=== PATIENT | female | born 1945 | race Caucasian/White ===

== ENCOUNTER 2016-08-16 10:50 | Day surgery (SDC) | payer BC ==
[~2016-08-16] VITALS: Ht 170.2 cm; Wt 66.1 kg
[~2016-08-16 10:50] MED LIST: SEIZURE MEDICATION; SPIRIVA; VENTOLIN
[2016-08-16 11:15] VITALS: Ht 170.2 cm; Wt 66.1 kg
[2016-08-16] MEDS ORDERED: LEVE250T66 PO (11:28)
[2016-08-16] MEDS ORDERED: MOME13HF2 INHALATION (11:28)
[2016-08-16 11:45] VITALS: BP 135/70; PULSE 80; RESP 18
[2016-08-16] MEDS ORDERED: FENTAnyl 50 MCG/ML VIAL ONE (12:15)
[2016-08-16] MEDS ORDERED: MIDAZOLAM 1 MG/ML 2 ML INJ ONE (12:15)
[2016-08-16] MEDS ORDERED: NEOSTIGMINE 3 MG/3 ML SYRINGE ONE (12:15)
--- NOTE | 2016-08-16 13:25 | GILP ---
DATE OF PROCEDURE: NAME OF PROCEDURES: Esophagogastroduodenoscopy and biopsy. SURGEON: Tan Quintero MD PREOPERATIVE DIAGNOSIS: Dysphagia. POSTOPERATIVE DIAGNOSES: 1. Hiatal hernia. 2. Reflux esophagitis with erosions at the lower end. 3. Gastritis with erosions. 4. Gastric mucosal biopsies were taken for Helicobacter pylori test. INDICATION FOR THE PROCEDURE: Ms. Naomi Bryson is a 70-year-old female patient who was complainin g of dysphagia. The patient was scheduled for endoscopic examination for further evaluation. The procedure and possible complications were well explained to the patient. The patient understood and consented to the procedure. DESCRIPTION OF PROCEDURE: Under the influence of anesthesia, the gastroscope was carefully introduc ed into the esophagus and under direct vision, it was advanced to the stomach and through the pyloru s into the duodenal bulb and descending duodenum. FINDINGS: ESOPHAGUS: The patient had hiatal hernia with reflux esophagitis and erosions at the lower end. STOMACH: The patient had gastritis with erosions. Gastric mucosal biopsies were taken for H pylori test. DUODENUM: Normal. She tolerated the procedure very well and there was no complication from the procedure. At the end of the procedures, she was awake with stable vital signs and she was discharged home to the care of her family. IMPRESSION: 1. Hiatal hernia. 2. Reflux esophagitis with erosions at the lower end. 3. Gastritis with erosions. 4. Gastric mucosal biopsies were taken for Helicobacter pylori test. 5. No esophageal stricture or neoplasm was identified. PLAN: 1. Nexium 24 hour p.o. every morning. 2. Await H pylori test report. Dictated By: TAN DOMINGUEZ/JONY Conf#: [id number] DID#: [id number]
--- NOTE | 2016-08-17 12:15 | CONS ---
DATE OF ADMISSION: 08/16/2016 DATE OF CONSULTATION: TYPE OF CONSULTATION: Preoperative gastroenterology Dear Dr. Villarreal, I thank you very much for this kind referral. HISTORY OF PRESENT ILLNESS: Ms. Naomi Bryson is a 70-year-old female patient who has been referre d to me for further evaluation of dysphagia. There is no past history of gastroesophageal reflux di sease or stricture. Her appetite has been good, and she is not losing any weight. There is no hist ory of peptic ulcer disease. She is not taking any nonsteroidal anti-inflammatory agents. There is no history of gallstones. She does not have any fever, chills, or jaundice. There is no history o f liver disease. The patient had history of rectal cancer for which she has undergone surgery. The patient underwent screening colonoscopy, and 2 small colon polyps were removed. There was no malig marty. She is not a hypertensive or diabetic. She does not have any heart disease. She has histor y of bronchial asthma. There is no history of kidney disease. She has got seizure disorder. She a lso has got anxiety disorder. SOCIAL HISTORY: She is a nonsmoker. She does not abuse alcohol. FAMILY HISTORY: Particular for the history of colon cancer in her mother. ALLERGIES: THERE IS NO HISTORY OF SIGNIFICANT DRUG ALLERGY. MEDICATIONS: 1. Ventolin inhaler. 2. Keppra. PHYSICAL EXAMINATION: VITAL SIGNS: She is 5 feet 7 inches tall, and she weighs 157 pounds. HEART: Examination of the heart reveals normal first and second heart sounds. LUNGS: Clear. ABDOMEN: Soft without any distention. Liver and spleen are not palpable. There are no masses. Th ere is no focal tenderness. Normal bowel sounds are heard. CENTRAL NERVOUS SYSTEM: Does not reveal any focal neurological deficit. IMPRESSION: 1. Dysphagia. 2. History of rectal cancer for which she has undergone surgery. 3. Followup colonoscopy revealed 2 colon polyps, and they were benign. 4. Bronchial asthma. 5. Seizure disorder. 6. Anxiety disorder. PLAN: 1. Upper endoscopy for further evaluation. 2. Because of the anxiety disorder, she needs monitored anesthesia care for the procedure. The procedure and possible complications are well explained to the patient. She understands and con sents to the procedure. I thank you once again. With warmest personal regards, Dictated By: TAN DOMINGUEZ/JONY Conf#: [id number] DID#: [id number] CC: DULCE VILLARREAL M.D.;*[facility]*
== END 2016-08-16 13:06 | disposition home or self-care (01) ==
LOC: GIL 10:50
PROVIDERS: ATTEND Internal Medicine Gastroenterology
DX: K44.9 Diaphragmatic hernia without obstruction or gangrene (principal); K21.0 Gastro-esophageal reflux disease with esophagitis; G40.909 Epilepsy, unspecified, not intractable, without status epilepticus; J45.909 Unspecified asthma, uncomplicated
CPT/HCPCS: 43239; 87081; J2250; J2710; J3010; Z7610

== ENCOUNTER 2016-08-25 10:40 | Emergency (ER) | payer BC ==
[~2016-08-25] VITALS: Wt 67.0 kg
[~2016-08-25 10:40] MED LIST changes: +LEVE250T66 PO; +MOME13HF2 INHALATION; -SEIZURE MEDICATION; -SPIRIVA
[2016-08-25] MEDS ORDERED: ALBUTEROL 0.083% (NEB) 2.5 MG/3 ML AMP NEB STA (14:45)
[2016-08-25] MEDS ORDERED: IPRATROPIUM (NEB) 0.5 MG/2.5 ML AMP NEB STA (14:45)
[2016-08-25] MEDS ORDERED: AZITHROMYCIN 250 MG TAB PO ONE (15:00)
--- NOTE | 2016-08-25 15:12 | RADRPT ---
PROCEDURE: XR Chest. CLINICAL INDICATION: Cough. Asthma exacerbation. TECHNIQUE: Single frontal view. COMPARISON: None. FINDINGS: There is a benign calcified granuloma in the left upper lobe. The lungs are otherwise clear. The heart size is normal. There is no pleural effusion. There is no pneumothorax. IMPRESSION: 1. Previous granulomatous disease. 2. Otherwise normal chest radiograph. RPTAT: QQ .Jovany Foss MD, MD Date Time Electronically viewed and signed by .Jovany Foss MD, MD on 08/25/2016 15:11 .R/
[2016-08-25] MEDS ORDERED: ALBU18HF INHALATION (15:31)
[2016-08-25] MEDS ORDERED: AZIT250T94 PO (15:31)
[2016-08-25] MEDS ORDERED: ERGO500037 PO (15:32)
[2016-08-25] MEDS ORDERED: LEVE500T8 PO (15:32)
[2016-08-25] MEDS ORDERED: ESOM20CA32 PO (15:33)
[2016-08-25] MEDS ORDERED: CETI10CA8 PO (15:34)
--- NOTE | 2016-08-25 15:34 | ERD ---
ER Documentation Chief Complaint Date/Time DATE: 08/25/16 TIME: 15:33 Chief Complaint SOB WITH INTERMITTENT CHEST PAIN WITH CHEST TIGHTNESS. NO N/V HPI Patient is a 62-year-old female with seizures who presents with shortness of breath. She said that she has had shortness of breath for "many months now" but was worse this morning. She tried Brio over the past 2 days. She says "my chest feels locked up". She says that she is speaking in full sentences. She has had no antibiotics as of yet. She did have a CT scan of her chest done on July 26 which showed metastatic disease versus atypical pneumonia. She has a biopsy scheduled for next Sunday because she has had a history of rectal cancer in the past and there was a concern about possible metastatic disease. Upon review of old medical records this is the patient's first visit to the emergency department. ROS All systems reviewed and are negative except as per history of present illness. Medications Home Meds Active Scripts Albuterol Sulfate* (Ventolin HFA*) 18 Gm Hfa.aer.ad, 2 PUFF INHALATION Q4H, #1 INHALER Prov:MILIND QUNITANA MD 08/25/16 Azithromycin* (Zithromax*) 250 Mg Tablet, 250 MG PO DAILY for 4 Days, TAB Prov:MILIND QUINTANA MD 08/25/16 Reported Medications Brimonidine Tartrate* (Alphagan*) 0.2%-10 Ml Opht Drops, 1 DROP BOTH EYES Q8, BOTTLE 08/25/16 Mometasone-Formoterol (Dulera) 200-5 Mcg/Inh - 13 Gm Hfa.aer.ad, 2 PUFFS INHALATION BID, #1 INHALER 08/25/16 Cetirizine Hcl (ALLERGY RELIEF) 10 Mg Capsule, 10 MG PO DAILY, CAP 08/25/16 Esomeprazole Magnesium (Nexium 24Hr) 22.3 Mg Capsule.dr, 22.3 MG PO BEFORE BREAKFAST, #30 CAP 08/25/16 Ergocalciferol (Vitamin D2) (VITAMIN D2) 50,000 Unit Capsule, 74093 UNIT PO Q7D , CAP 08/25/16 Levetiracetam* (Levetiracetam*) 500 Mg Tablet, 500 MG PO BID, TAB 08/25/16 Discontinued Reported Medications Levetiracetam* (Keppra*) 250 Mg Tab, 250 MG PO BID, TAB 08/16/16 Mometasone-Formoterol (Dulera) 100-5 Mcg - 13 Gm Hfa.aer.ad, 1 PUFFS INHALATION BID, #1 INHALER 08/16/16 [Ventolin] No Conflict Check 01/07/16 Allergies Allergies: Coded Allergies: No Known Allergy (Unverified , 08/25/16) PMhx/Soc History of Surgery: Yes (Rectal resecion 2012) Anesthesia Reaction: No Hx Neurological Disorder: Yes (Neuropathy) Hx Respiratory Disorders: Yes (Asthma, TB) Hx Cardiac Disorders: No Hx Psychiatric Problems: Yes (Anxiety) Hx Miscellaneous Medical Probl: No Hx Alcohol Use: No Hx Substance Use: No Hx Tobacco Use: No Smoking Status: Former smoker FmHx Family History: diabetes Physical Exam Vitals Vital Signs Date Time Temp Pulse Resp B/P Pulse Ox O2 Delivery O2 Flow Rate FiO2 08/25/16 15:50 77 20 132/72 98 Room Air 08/25/16 15:00 57 18 98 21 08/25/16 14:51 0 08/25/16 14:51 62 14 126/76 100 Room Air 08/25/16 10:41 98.3 98 20 155/77 94 Physical Exam Const: No acute distress Head: Atraumatic Eyes: Normal Conjunctiva ENT: Normal External Ears, Nose and Mouth. Neck: Full range of motion..~ No meningismus. Resp: Clear to auscultation bilaterally, speaking in full sentences, crackles at the bases Cardio: Regular rate and rhythm, no murmurs Abd: Soft, non tender, non distended. Normal bowel sounds Skin: No petechiae or rashes Back: No midline or flank tenderness Ext: No cyanosis, or edema Neur: Awake and alert Psych: Normal Mood and Affect Results 24 hrs Current Medications Medications (Trade) Dose Ordered Sig/Sarah Route PRN Reason Start Time Stop Time Status Last Admin Dose Admin Albuterol (Proventil 0.083% (Neb)) 5 mg ONCE STAT NEB 08/25/16 14:45 08/25/16 14:47 DC 08/25/16 14:59 Ipratropium [place] (Atrovent 0.02% (Neb)) 0.5 mg ONCE STAT NEB 08/25/16 14:45 08/25/16 14:47 DC 08/25/16 14:59 Azithromycin (Zithromax) 500 mg ONCE ONCE PO 08/25/16 15:00 08/25/16 15:01 DC 08/25/16 15:07 Procedures/MDM EKG read by me: Rate/Rhythm: Regular rate and rhythm at a rate of 92 Intervals: Normal Impression: No evidence of ischemia or arrhythmia Chest x-ray shows old granulomatous disease per radiology. Patient is a 70-year-old female with seizures who presents with shortness of breath. She was given albuterol and Atrovent and feels better. Her CT scan of the chest showed possible atypical pneumonia so I will treat her with 5 days of Zithromax and she has not had this as of yet. She has a biopsy scheduled which is scheduled for Sunday. The patient is stable for outpatient management at this time. I doubt acute coronary syndrome. I doubt pneumothorax, pulmonary embolism, or aortic dissection. There is a possibility of atypical pneumonia. The patient could return for any worsening symptoms. She is well appearing on discharge. Departure Diagnosis: Primary Impression: Bronchitis Additional Impression: Shortness of breath Condition: Fair Patient Instructions: Bronchitis, Antiobiotic Treatment (Adult), Dyspnea Referrals: LUCY DONALD M.D. Additional Instructions: Call your primary care doctor TOMORROW for an appointment during the next 1-2 days.See the doctor sooner or return here if your condition worsens before your appointment time. MILIND QUINTANA MD August 25, 2016 15:34
[2016-08-25] MEDS ORDERED: MOME13HF INHALATION (15:35)
[2016-08-25] MEDS ORDERED: ALP2OP10 BOTH EYES (15:36)
[2016-08-25 15:50] VITALS: BP 132/72; PULSE 77; RESP 20
== END 2016-08-25 15:58 | disposition home or self-care (01) ==
LOC: E/R 10:40
DX: J20.9 Acute bronchitis, unspecified (principal); J45.909 Unspecified asthma, uncomplicated; Z87.891 Personal history of nicotine dependence
CPT/HCPCS: 71010; 94664; Z7502; Z7610; 93005

== ENCOUNTER 2017-06-22 12:26 | Inpatient (IN) | END 2017-07-05 14:55 | disposition home or self-care (01) | DRG 166 ==